=== PATIENT | male | born 1970 | race Caucasian/White ===

== ENCOUNTER 2021-03-26 05:59 | Emergency (ER) | payer OTHER, SELFPAY ==
--- NOTE | ~2021-03-26 | XR_ITS ---
EXAMINATION: XR WRIST, RIGHT CLINICAL INFORMATION: Pain COMPARISON: None TECHNIQUE: Right wrist, 4 views FINDINGS: Bone detail is partially obscured by overlying fiberglass cast. There is a bone graft harvest defect in the distal, dorsal radius, status post fixation of scaphoid fracture. A 0.4 cm long metallic fragment (possibly tip of wire) projects over the dorsal scaphoid. There appears to be fracture lucency through the region of the scaphoid waist, not well evaluated on these radiographs, since the scaphoid is partially obscured by overlying cast. The Gerald screw might have changed in position, but there are no comparison radiographs to confirm this impression. The head of the screw projects over the radioscaphoid joint space rather than within the proximal pole of the scaphoid. Also, the distal tip of the screw projects over the region of the STT joint rather than within the distal pole, and the distal pole fragment is not optimally visualized. The distal pole fragment appears to be suboptimally positioned. Query if patient has undergone any recent CT imaging through the wrist. Soft tissues are swollen around the wrist. 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 XR/XR wrist RT w scaphoid IMPRESSION: Status post bone graft harvesting of distal radius and scaphoid fracture fixation. Persistent fracture lucency is noted. There might be a change in positioning of scaphoid fragments and a change in positioning of the Gerald screw. However, there are no comparison radiographs to confirm this impression. Note that the proximal and distal tips of the Gerald screw project over joint spaces rather than within bone. If not recently performed, further assessment with CT imaging of the wrist may be warranted.
[2021-03-26 06:27] VITALS: BP 121/82; PULSE 93; RESP 16; TEMP 36.8; O2SAT 96; BMI 23.8
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
== END 2021-03-26 08:00 | disposition home or self-care (01) ==
PROVIDERS: Emergency Provider Emergency Medicine; PCP Psychiatry & Neurology Neurology
DX: M25.531 Pain in right wrist (principal); S62.001D Unspecified fracture of navicular [scaphoid] bone of right wrist, subsequent encounter for fracture with routine healing; X58.XXXD Exposure to other specified factors, subsequent encounter; J45.909 Unspecified asthma, uncomplicated; Z79.899 Other long term (current) drug therapy
CPT/HCPCS: 73110; 99283

== ENCOUNTER 2021-12-06 10:19 | Emergency (ER) | payer OTHER, SELFPAY ==
--- NOTE | ~2021-12-06 | XR_ITS ---
EXAMINATION: XR WRIST, RIGHT CLINICAL INFORMATION: Scaphoid fracture with orthopedic pin. Worsening pain. COMPARISON: Most recent right wrist radiographs dated 03/26/2021. TECHNIQUE: PA, lateral, oblique, and scaphoid views of the right wrist. FINDINGS: Redemonstration of an orthopedic screw across the previously seen scaphoid fracture. The proximal aspect of the screw is again noted to extend beyond of the scaphoid cortex and abuts the distal radius where there is increase osseous erosion noted measuring up to 0.4 cm along the articular surface. Additional posterior orthopedic hardware appears unchanged. There is persistent fragmentation of the distal scaphoid with unchanged anatomic alignment as well as increased lucency across the fracture line. Findings could indicate nonunion versus avascular necrosis. No sclerotic change. Mild new bone/callus formation along the periphery. Moderate osteoarthritis at the 1st and 2nd carpometacarpal joints appears unchanged. XR/XR wrist RT min 3V IMPRESSION: 1. Redemonstration of a scaphoid orthopedic screw with the proximal aspect of the screw again noted to extend beyond the scaphoid cortex and abutting the distal radius where there is increasing osseous erosion along the articular surface. No hardware fracture. 2. Chronic scaphoid fracture in unchanged anatomic alignment with persistent fragmentation distally and increased lucency across the fracture line. Findings could indicate nonunion versus avascular necrosis. 3. Moderate osteophyte arthritis at the 1st and 2nd carpometacarpal joints is unchanged.
[2021-12-06 10:26] VITALS: BP 106/78; PULSE 74; RESP 16; TEMP 36.4; O2SAT 97; BMI 25.0
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
== END 2021-12-06 12:11 | disposition home or self-care (01) ==
PROVIDERS: Emergency Provider Emergency Medicine
DX: M25.531 Pain in right wrist (principal); S62.001K Unspecified fracture of navicular [scaphoid] bone of right wrist, subsequent encounter for fracture with nonunion; X58.XXXD Exposure to other specified factors, subsequent encounter
CPT/HCPCS: 73110; 99284

== ENCOUNTER 2021-12-11 18:24 | Emergency (ER) | payer OTHER, SELFPAY ==
--- NOTE | ~2021-12-11 | XR_ITS ---
EXAMINATION: RIGHT WRIST CLINICAL INFORMATION: Right wrist pain status post surgery 8 months ago COMPARISON: Right wrist 5 days ago on 12/06/2021 TECHNIQUE: 4 views of the wrist including a scaphoid view. FINDINGS: Compared to the study from December 06, there's been no interval change. Redemonstration of a single orthopedic screw across the previously seen scaphoid fracture. The proximal aspect of the screw is again noted to extend beyond of the scaphoid cortex abutting the distal radius where there is increased osseous erosion (see burris image). Again seen is fragmentation of the distal scaphoid with unchanged anatomic alignment. No definite bony fusion is seen. No sclerotic change. No new fractures XR/XR wrist RT w scaphoid IMPRESSION: No interval change when compared to the study from 5 days ago.
[2021-12-11 18:45] VITALS: BP 120/57; PULSE 76; RESP 19; TEMP 37.1; O2SAT 95; BMI 25.0
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
== END 2021-12-11 20:55 | disposition home or self-care (01) ==
PROVIDERS: Emergency Provider Internal Medicine; PCP Internal Medicine
DX: G89.29 Other chronic pain (principal); M25.531 Pain in right wrist; S62.014D Nondisplaced fracture of distal pole of navicular [scaphoid] bone of right wrist, subsequent encounter for fracture with routine healing; X58.XXXD Exposure to other specified factors, subsequent encounter
CPT/HCPCS: 73110; 99283

== ENCOUNTER 2022-03-20 09:37 | Emergency (ER) | payer OTHER, SELFPAY ==
--- NOTE | ~2022-03-20 | XR_ITS ---
EXAMINATION: XR CHEST CLINICAL INFORMATION: Shortness of breath COMPARISON: Chest x-ray 01/07/2015 TECHNIQUE: Frontal portable view of the chest was obtained. 10:33 AM FINDINGS: No significant abnormality is noted involving the heart, lungs, mediastinum, bony thorax or soft tissues. XR/XR chest 1V IMPRESSION: Unremarkable examination.
--- NOTE | 2022-03-20 09:53 | ECG_ITS ---
Test Reason : DYSPNEA Blood Pressure : / mmHG Vent. Rate : 069 BPM Atrial Rate : 069 BPM P-R Int : 130 ms QRS Dur : 080 ms QT Int : 358 ms P-R-T Axes : 072 077 072 degrees QTc Int : 383 ms Normal sinus rhythm Normal ECG No previous ECGs available Referred By: Generic ED Physician Electronically Signed By:ALIDA PURDY MD
[2022-03-20 09:54] VITALS: BP 125/101; PULSE 78; RESP 18; TEMP 36.9; O2SAT 90; BMI 24.4
[2022-03-20 10:10] LABS: MANUAL DIFF FLAG NO
[2022-03-20 10:15] LABS: Basophils Absolute Auto 0.1 X10*3/uL (0.0-0.2); Basophils Percent Auto 0.8 % (0-2); Eosinophils Absolute Auto 0.5 X10*3/uL (0.0-0.4); Eosinophils Percent Auto 6.2 % (0-4); Hematocrit 43.5 % (42.0-52.0); Hemoglobin 13.9 g/dl (14.0-18.0); Imm Gran Abs Auto 0.02 X10*3/uL (0.00-0.03); Imm Gran Pct Auto 0.3 % (0.0-0.4); Lymphocytes Absolute Auto 3.3 X10*3/uL (1.2-4.9); Lymphocytes Percent Auto 42.4 % (20-40); Mean Corpuscular Volume 90.8 fL (80.0-98.0); Mean Platelet Volume 9.5 fL (9.4-12.4); Monocytes Absolute Auto 0.7 X10*3/uL (0.1-1.2); Monocytes Percent Auto 9.3 % (2-11); Neutrophils Absolute Auto 3.2 x10*3/uL (2.0-8.3); Platelet Count 278 X10*3/uL (160-400); Red Blood Count 4.79 X10*6/uL (4.60-5.80); Red Cell Distribution Width 12.9 % (11.0-16.0); White Blood Count 7.7 X10*3/uL (4.8-10.8)
[2022-03-20 10:25] LABS: D Dimer High Sensitivity < 150 NG/ML
[2022-03-20 10:30] LABS: Anion Gap 10 (12-20); Blood Urea Nitrogen 18 mg/dL (9-16); Calcium 8.6 mg/dL (8.4-10.2); Carbon Dioxide 28 mmol/L (22-29); Chloride 107 mmol/L (96-108); Creatinine Clr Calc Pharmacy 85.4; Estimated Glomerular Filt Rate > 60; Glucose Random 81 mg/dL (60-115); Potassium 4.7 mmol/L (3.3-5.1); Sodium 140 mmol/L (135-145)
[2022-03-20 10:31] LABS: COVID-19 Test Negative (Negative); IDNOW Serial# 9DB6401D
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
== END 2022-03-20 14:12 | disposition left against medical advice (07) ==
LOC: HO.ED 14:05
PROVIDERS: Emergency Medicine; Emergency Provider Emergency Medicine; PCP Internal Medicine
DX: J45.909 Unspecified asthma, uncomplicated (principal); R06.02 Shortness of breath; Z20.822 Contact with and (suspected) exposure to COVID-19
CPT/HCPCS: 71045; 80048; 85025; 85379; 87635; 93005; 99281; 99283

== ENCOUNTER 2023-01-09 13:59 | Outpatient (REF) | payer OTHER, SELFPAY ==
--- NOTE | ~2023-01-09 | XR_ITS ---
EXAMINATION: XR WRIST, RIGHT XR HAND, RIGHT CLINICAL INFORMATION: Pain COMPARISON: Radiographs 12/11/2021 and 12/06/2021 TECHNIQUE: Redemonstration of an orthopedic screw across the previously seen scaphoid fracture. The proximal aspect of the screw is again noted to extend beyond of the scaphoid cortex and abuts the distal radius where there is slightly increased osseous erosion along the articular surface. Additional posterior orthopedic hardware appears unchanged. There is persistent fragmentation of the distal scaphoid with unchanged alignment as well as persistent lucency across the fracture line. There is increasing sclerosis involving the trapezium. 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 XR/XR hand wrist RT IMPRESSION: 1. Redemonstration of a scaphoid orthopedic screw with the proximal aspect of the screw again noted to extend beyond the scaphoid cortex and abutting the distal radius where there is slightly osseous erosion along the articular surface. There is increasing sclerosis involving the trapezium which potentially reflect osteonecrosis. Consider further evaluation with MR. 2. Chronic scaphoid fracture in unchanged anatomic alignment with persistent fragmentation distally and persistent lucency across the fracture line. Findings could indicate nonunion versus avascular necrosis. 3. Moderate to advanced osteophyte arthritis at the 1st and 2nd carpometacarpal joints is unchanged.
== END 2023-01-09 14:00 | disposition home or self-care (01) ==
LOC: HO.HMGCX 13:59
PROVIDERS: PCP Internal Medicine; Visit Provider Internal Medicine
DX: M79.641 Pain in right hand (principal)
CPT/HCPCS: 73110; 73130

== ENCOUNTER 2023-01-17 11:33 | Outpatient (REF) | payer OTHER, SELFPAY ==
[2023-01-17 13:57] LABS: MANUAL DIFF FLAG NO
[2023-01-17 14:06] LABS: Basophils Absolute Auto 0.1 X10*3/uL (0.0-0.2); Basophils Percent Auto 0.8 % (0-2); Eosinophils Absolute Auto 0.7 X10*3/uL (0.0-0.4); Eosinophils Percent Auto 5.6 % (0-4); Hematocrit 43.6 % (42.0-52.0); Hemoglobin 14.6 g/dl (14.0-18.0); Imm Gran Abs Auto 0.05 X10*3/uL (0.00-0.03); Imm Gran Pct Auto 0.4 % (0.0-0.4); Lymphocytes Absolute Auto 2.4 X10*3/uL (1.2-4.9); Lymphocytes Percent Auto 19.6 % (20-40); Mean Corpuscular HGB Conc 33.5 g/dl (31.0-36.0); Mean Corpuscular Hemoglobin 29.9 pg (27.0-33.0); Mean Corpuscular Volume 89.3 fL (80.0-98.0); Mean Platelet Volume 9.5 fL (9.4-12.4); Monocytes Absolute Auto 0.8 X10*3/uL (0.1-1.2); Monocytes Percent Auto 6.8 % (2-11); Neutrophils Absolute Auto 8.1 x10*3/uL (2.0-8.3); Neutrophils Percent Auto 66.8 % (45-73); Platelet Count 257 X10*3/uL (160-400); Red Blood Count 4.88 X10*6/uL (4.60-5.80); Red Cell Distribution Width 12.9 % (11.0-16.0); White Blood Count 12.2 X10*3/uL (4.8-10.8)
[2023-01-17 14:27] LABS: Alanine Aminotransferase 10 U/L (0-40); Albumin Level 4.3 g/dL (3.5-5.0); Alkaline Phosphatase 68 U/L (39-117); Anion Gap 13 (12-20); Aspartate Amino Transferase 10 U/L (5-37); Bilirubin Total 0.3 mg/dL (0.0-1.0); Blood Urea Nitrogen 9 mg/dL (9-16); Calcium 9.5 mg/dL (8.4-10.2); Carbon Dioxide 28 mmol/L (22-29); Chloride 103 mmol/L (96-108); Estimated Glomerular Filt Rate > 60; Glucose Random 102 mg/dL (60-115); Potassium 4.5 mmol/L (3.3-5.1); Sodium 139 mmol/L (135-145); Total Protein 6.5 g/dL (6.5-8.0)
[2023-01-19 05:09] LABS: LDL Cholesterol Direct 87 mg/dL (<100)
== END 2023-01-17 11:34 | disposition home or self-care (01) ==
LOC: HO.HMGCLDS 11:33
PROVIDERS: PCP Internal Medicine; Visit Provider Internal Medicine
DX: J44.9 Chronic obstructive pulmonary disease, unspecified (principal)
CPT/HCPCS: 36415; 80053; 83721; 84443; 85025

== ENCOUNTER 2023-04-26 07:57 | Outpatient (AMB) | payer OTHER, SELFPAY ==
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
== END 2023-04-26 10:04 | disposition home or self-care (01) ==
LOC: HO.HMGC 07:57
PROVIDERS: PCP Internal Medicine; Visit Provider Internal Medicine
DX: J44.9 Chronic obstructive pulmonary disease, unspecified (principal)
CPT/HCPCS: 99213

== ENCOUNTER 2023-05-24 07:33 | Outpatient (AMB) | payer OTHER, SELFPAY ==
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
== END 2023-05-24 09:19 | disposition home or self-care (01) ==
LOC: HO.HMGC 07:33
PROVIDERS: PCP Internal Medicine; Visit Provider Internal Medicine
DX: F17.200 Nicotine dependence, unspecified, uncomplicated (principal)
CPT/HCPCS: 99213

== ENCOUNTER 2023-07-04 08:19 | Outpatient (AMB) | payer OTHER, SELFPAY ==
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
== END 2023-07-04 12:05 | disposition home or self-care (01) ==
LOC: HO.HMGC 08:19
PROVIDERS: PCP Internal Medicine; Visit Provider Internal Medicine
DX: J43.1 Panlobular emphysema (principal); F17.210 Nicotine dependence, cigarettes, uncomplicated; Z71.6 Tobacco abuse counseling; R05.9 Cough, unspecified; R06.02 Shortness of breath
CPT/HCPCS: 99214

== ENCOUNTER 2023-07-25 08:43 | Outpatient (AMB) | payer OTHER, SELFPAY ==
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
== END 2023-07-25 12:08 | disposition home or self-care (01) ==
PROVIDERS: PCP Internal Medicine; Visit Provider Internal Medicine
DX: J43.1 Panlobular emphysema (principal); F17.210 Nicotine dependence, cigarettes, uncomplicated; R06.02 Shortness of breath; Z59.82 Transportation insecurity; Z71.6 Tobacco abuse counseling; Z74.8 Other problems related to care provider dependency; K08.89 Other specified disorders of teeth and supporting structures; R68.84 Jaw pain
CPT/HCPCS: 99214

== ENCOUNTER 2024-01-23 08:28 | Outpatient (AMB) | payer OTHER, SELFPAY ==
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
== END 2024-01-23 10:25 | disposition home or self-care (01) ==
LOC: HO.HMGC 08:28
PROVIDERS: PCP Internal Medicine; Visit Provider Internal Medicine
DX: J43.1 Panlobular emphysema (principal); F17.298 Nicotine dependence, other tobacco product, with other nicotine-induced disorders
CPT/HCPCS: 99213

== ENCOUNTER 2025-01-22 09:30 | Outpatient (AMB) | payer OTHER, SELFPAY ==
[2025-01-22 10:08] VITALS: BP 148/102; PULSE 50; O2SAT 98; BMI 23.5
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
== END 2025-01-22 13:29 | disposition home or self-care (01) ==
LOC: HO.HMCC 09:30
PROVIDERS: PCP Internal Medicine; Visit Provider Internal Medicine
DX: R06.00 Dyspnea, unspecified (principal); J44.1 Chronic obstructive pulmonary disease with (acute) exacerbation; F17.200 Nicotine dependence, unspecified, uncomplicated; M25.531 Pain in right wrist

== ENCOUNTER 2025-01-22 09:30 | Outpatient (REF) | payer OTHER, SELFPAY ==
--- NOTE | ~2025-01-22 | XR_ITS ---
CLINICAL HISTORY: M25.531 - Pain in right wrist 3 view right wrist Comparison: None Findings: Iatrogenic findings with surgical hardware noted within the scaphoid. Surgical hardware proximally impinges upon of the distal radius with associated articular surface scalloping. The distal portion of the surgical screw is adjacent to the trapezium. There is abnormal appearance of the distal portion of the scaphoid possibly related to developing avascular necrosis. No fractures or dislocations. No significant loss of joint space, osteophyte, or erosions. No other radiopaque foreign body. IMPRESSION: 1. 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 Clinical follow-up recommended. This document has been electronically signed by: Fly Fuentes MD on 01/23/2025 09:24:56
--- NOTE | ~2025-01-22 | XR_ITS ---
CLINICAL HISTORY: J44.1 - Chronic obstructive pulmonary disease with (acute) exacerbation 2 view chest x-ray Comparison: None Findings: No consolidation or effusion. Heart size is normal. No acute fracture. IMPRESSION: 1. No acute findings. This document has been electronically signed by: Fly Fuentes MD on 01/23/2025 09:25:03
[2025-01-22 15:18] LABS: Influenza A PCR NEGATIVE (Negative); Influenza B PCR NEGATIVE (Negative); Resp Syncy Virus RNA Qual PCR NEGATIVE (Negative); SARS COV2 PCR INHOUSE NEGATIVE (Negative)
== END 2025-01-22 09:31 | disposition home or self-care (01) ==
LOC: HO.HMGCX 09:30
PROVIDERS: PCP Internal Medicine; Visit Provider Internal Medicine
DX: J44.1 Chronic obstructive pulmonary disease with (acute) exacerbation (principal); R06.00 Dyspnea, unspecified; M25.531 Pain in right wrist; R09.89 Other specified symptoms and signs involving the circulatory and respiratory systems; F17.200 Nicotine dependence, unspecified, uncomplicated
CPT/HCPCS: 0241U; 71046; 73110; 99212

== ENCOUNTER → 2025-01-22 10:36 | Outpatient (BNV) | payer OTHER, SELFPAY | PROVIDERS: PCP Internal Medicine; Visit Provider Specialist | DX: J44.1 Chronic obstructive pulmonary disease with (acute) exacerbation (principal); M25.531 Pain in right wrist | CPT/HCPCS: 71046; 73110 ==

== ENCOUNTER 2025-06-30 17:13 | Emergency (ER) | payer OTHER, SELFPAY ==
[2025-06-30 17:17] VITALS: BP 135/72; PULSE 62; RESP 18; TEMP 36.8; O2SAT 97; BMI 24.5
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
== END 2025-06-30 20:09 | disposition left against medical advice (07) ==
LOC: HO.ED 20:02
PROVIDERS: Emergency Provider Emergency Medicine; PCP Internal Medicine
DX: R06.02 Shortness of breath (principal); Z87.891 Personal history of nicotine dependence
CPT/HCPCS: 99281

== ENCOUNTER 2025-07-22 15:33 | Emergency (ER) | payer OTHER, SELFPAY ==
--- NOTE | ~2025-07-22 | XR_ITS ---
EXAMINATION: XR CHEST 1 view CLINICAL INFORMATION: Pneumonia? COMPARISON: Chest radiograph on January 22, 2025 TECHNIQUE: Frontal view of the chest was obtained. FINDINGS: No significant abnormality is noted involving the heart, lungs, mediastinum, bony thorax or soft tissues. XR/XR chest 1V IMPRESSION: No acute abnormality. Electronically signed by: Stacy Knight MD 07/22/2025 04:17 PM EDT
--- NOTE | ~2025-07-22 | XR_ITS ---
EXAMINATION: X-ray right wrist X-ray right hand CLINICAL INFORMATION: Hand pain, scaphoid screw displaced COMPARISON: X-ray 01/22/2025 TECHNIQUE: Wrist 4 views. Hand 3 views. FINDINGS: Redemonstrated postsurgical changes with a screw positioned in the in the scaphoid.. The proximal aspect of the screw, impinges on the distal radius, with scalloping of the distal radial articular surface. There is lucency along the screw. Additional metallic fragment adjacent to the screw is redemonstrated. Redemonstrated abnormal appearance of the distal scaphoid, which could be related to evolving avascular necrosis. Redemonstrated chronic small ossification along the radial aspect of the distal scaphoid. Severe first CMC arthritis. Chronic ossification along the radial aspect of the joint. No new acute fracture is identified. No acute fracture is otherwise seen. Small possible erosion along the ulnar aspect of the second proximal phalanx base, unchanged from previous. No significant joint space narrowing in the IP and DIP joints seen. No radiopaque foreign body. XR/XR hand RT 2V IMPRESSION: 1. Scaphoid findings including postsurgical changes, malpositioning of the scaphoid screw,, possible distal scaphoid evolving avascular necrosis as detailed above. Clinically correlate and follow-up. 2. Severe first CMC arthritis. 3. Additional abnormal findings as detailed above. Electronically signed by: Jose Manuel Walters MD 07/22/2025 04:25 PM EDT
--- NOTE | ~2025-07-22 | XR_ITS ---
EXAMINATION: X-ray right wrist X-ray right hand CLINICAL INFORMATION: Hand pain, scaphoid screw displaced COMPARISON: X-ray 01/22/2025 TECHNIQUE: Wrist 4 views. Hand 3 views. FINDINGS: Redemonstrated postsurgical changes with a screw positioned in the in the scaphoid.. The proximal aspect of the screw, impinges on the distal radius, with scalloping of the distal radial articular surface. There is lucency along the screw. Additional metallic fragment adjacent to the screw is redemonstrated. Redemonstrated abnormal appearance of the distal scaphoid, which could be related to evolving avascular necrosis. Redemonstrated chronic small ossification along the radial aspect of the distal scaphoid. Severe first CMC arthritis. Chronic ossification along the radial aspect of the joint. No new acute fracture is identified. No acute fracture is otherwise seen. Small possible erosion along the ulnar aspect of the second proximal phalanx base, unchanged from previous. No significant joint space narrowing in the IP and DIP joints seen. No radiopaque foreign body. XR/XR wrist RT min 3V IMPRESSION: 1. Scaphoid findings including postsurgical changes, malpositioning of the scaphoid screw,, possible distal scaphoid evolving avascular necrosis as detailed above. Clinically correlate and follow-up. 2. Severe first CMC arthritis. 3. Additional abnormal findings as detailed above. Electronically signed by: Jose Manuel Walters MD 07/22/2025 04:25 PM EDT
[2025-07-22 15:36] VITALS: BP 123/59; PULSE 72; RESP 16; TEMP 36.5; O2SAT 96; BMI 23.6
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
[2025-07-22 16:22] LABS: IDNOW Serial# 55D5AD1C; IDNOW Serial# 58CA691E; Influenza B2 Negative (Negative)
[2025-07-22 16:23] LABS: COVID-19 Test Negative (Negative)
--- NOTE | 2025-07-22 18:17 | PC.NURSE ---
Per Nisa VINCENT, pt signed out AMA stating that he needed to get back home to care for . Pt educated by PA on risks of leaving without completing evaluation and treatment, pt understands and still requested to leave AMA. Pt left department.
== END 2025-07-22 18:32 | disposition left against medical advice (07) ==
PROVIDERS: Physician Assistant; Emergency Provider Emergency Medicine; PCP Internal Medicine
DX: J43.1 Panlobular emphysema (principal); M25.531 Pain in right wrist; K04.7 Periapical abscess without sinus; R05.9 Cough, unspecified; R50.9 Fever, unspecified; R09.81 Nasal congestion; K03.81 Cracked tooth; Z11.52 Encounter for screening for COVID-19; Z76.0 Encounter for issue of repeat prescription; Z79.899 Other long term (current) drug therapy
CPT/HCPCS: 71045; 73110; 73120; 87502; 87635; 99282; 99283

== ENCOUNTER → 2025-07-22 15:41 | Outpatient (BNV) | payer OTHER, SELFPAY | PROVIDERS: Emergency Provider Emergency Medicine; PCP Internal Medicine; Visit Provider Radiology Diagnostic Ultrasound | DX: Z03.89 Encounter for observation for other suspected diseases and conditions ruled out (principal); M18.11 Unilateral primary osteoarthritis of first carpometacarpal joint, right hand | CPT/HCPCS: 71045; 73110; 73120 ==